=== PATIENT | male | born 1965 | race African-American/Black ===

== ENCOUNTER 2021-08-29 07:34 | Emergency (ER) | payer MEDICAID ==
[~2021-08-29] VITALS: Ht 177.8 cm; Wt 84.0 kg
[2021-08-29] MEDS ORDERED: SODIUM CHLORIDE 0.9% 1,000 ML IV ONE (08:00)
[2021-08-29 08:10] LABS: EOSINOPHILS % 0.8 % (0.0-5.0); HEMATOCRIT. 43.5 % (42.0-52.0); HEMOGLOBIN. 14.7 g/dL (14.0-18.0); LYMPHOCYTES % 30.2 % (20.0-50.0); MEAN CORPUSCULAR HEMOGLOBIN 32.6 pg (28.0-32.0); MEAN CORPUSCULAR VOLUME 96.3 fL (80.0-94.0); MEAN PLATELET VOLUME 7.3 fl (7.4-10.4); MONOCYTES % 11.3 % (2.0-8.0); NEUTROPHILS % 56.7 % (40.0-76.0); PLATELET 225 x1000/uL (130-400); RED BLOOD CELL COUNT 4.52 mill/uL (4.7-6.1); RED CELL DISTRIBUTION WIDTH 14.4 % (11.6-14.6)
[2021-08-29 08:16] LABS: CHLORIDE 107 mEq/L (98-107)
[2021-08-29 08:21] LABS: ETHANOL BLOOD < 10 mg/dL
[2021-08-29 12:00] VITALS: BP 154/92
== END 2021-08-29 13:29 | disposition left against medical advice (07) ==
LOC: ER 08:05 → EDBD 08:05 → ER 13:29
DX: R41.82 Altered mental status, unspecified (principal); I49.9 Cardiac arrhythmia, unspecified; Z20.822 Contact with and (suspected) exposure to COVID-19
CPT/HCPCS: 36415; 70450; 71045; 80053; 80307; 80320; 80329; 82140; 83880; 84484; 85025; 87426; 93005; 99285; J7030; G0480

== ENCOUNTER 2024-02-23 15:51 | Emergency (ER) | payer MEDICAID, OTHER ==
[~2024-02-23] VITALS: Ht 182.9 cm; Wt 90.0 kg
[2024-02-23 15:53] VITALS: BP 145/88; PULSE 98; RESP 18; TEMP 98.2; O2SAT 100
== END 2024-02-23 22:05 | disposition left against medical advice (07) ==
LOC: ER 15:51
DX: Z11.3 Encounter for screening for infections with a predominantly sexual mode of transmission (principal); Z53.21 Procedure and treatment not carried out due to patient leaving prior to being seen by health care provider
CPT/HCPCS: 99281